=== PATIENT | male | born 1995 | race Caucasian/White ===

== ENCOUNTER 2024-03-24 18:31 | Emergency (ER) | payer OTHER ==
[~2024-03-24] VITALS: Ht 175.3 cm; Wt 145.0 kg
[2024-03-24 18:33] VITALS: O2SAT 97
[2024-03-24 18:47] VITALS: BP 131/69; PULSE 96; RESP 16; TEMP 98; O2SAT 98
[2024-03-24] MEDS: FLUORESCEIN SODIUM 1MG/STRIP EACHEYE ONE (20:22)
[2024-03-24] MEDS ORDERED: OCUFLX LEFTEYE (20:27)
== END 2024-03-24 20:34 | disposition home or self-care (01) ==
LOC: ER 18:31
DX: T15.02XA Foreign body in cornea, left eye, initial encounter (principal); I10 Essential (primary) hypertension; W45.8XXA Other foreign body or object entering through skin, initial encounter; Y93.89 Activity, other specified; Y92.89 Other specified places as the place of occurrence of the external cause; Y99.8 Other external cause status
CPT/HCPCS: 65222; 99284

== ENCOUNTER 2024-06-27 18:15 | Emergency (ER) | payer SELFPAY ==
[~2024-06-27] VITALS: Ht 175.3 cm; Wt 145.1 kg
[~2024-06-27 18:15] MED LIST: OCUFLX LEFTEYE
[2024-06-27 18:23] VITALS: BP 124/71; PULSE 86; RESP 16; TEMP 98.8; O2SAT 99
== END 2024-06-27 19:01 | disposition left against medical advice (07) ==
LOC: ER 18:15
DX: R50.9 Fever, unspecified (principal); Z53.21 Procedure and treatment not carried out due to patient leaving prior to being seen by health care provider

== ENCOUNTER 2024-07-24 09:23 | Emergency (ER) | payer MEDICAID ==
[~2024-07-24] VITALS: Ht 175.3 cm; Wt 140.0 kg
[2024-07-24 09:49] VITALS: O2SAT 98
[2024-07-24] MEDS ORDERED: ONDA4TAB50 MT (11:12)
[2024-07-24] MEDS ORDERED: GUAI-450 MT (11:12)
[2024-07-24] MEDS ORDERED: IBUP-2029 MT (11:12)
[2024-07-24 11:19] VITALS: BP 133/74; PULSE 81; RESP 19; TEMP 36.72516; O2SAT 98
== END 2024-07-24 11:41 | disposition home or self-care (01) ==
LOC: ER 09:23
DX: B34.9 Viral infection, unspecified (principal); R07.9 Chest pain, unspecified; E78.5 Hyperlipidemia, unspecified; Z20.822 Contact with and (suspected) exposure to COVID-19
CPT/HCPCS: 87426; 87804; 93005; 99284

== ENCOUNTER 2025-05-27 10:59 | Emergency (ER) | payer MEDICAID ==
[~2025-05-27] VITALS: Ht 180.3 cm; Wt 121.0 kg
[~2025-05-27 10:59] MED LIST changes: +GUAI-450 MT; +IBUP-1455 MT; +ONDA4TAB50 MT
[2025-05-27 11:07] VITALS: O2SAT 98
[2025-05-27] MEDS: LIDOCAINE HCL 1% 20ML VIAL INFIL ONE (12:10)
[2025-05-27] MEDS ORDERED: CEPH500T MT (13:24)
[2025-05-27 13:43] VITALS: BP 130/89; PULSE 82; RESP 16; TEMP 36.9; O2SAT 98
== END 2025-05-27 13:44 | disposition home or self-care (01) ==
LOC: ER 12:59
DX: L60.0 Ingrowing nail (principal)
CPT/HCPCS: 99283; 10060; J2003